=== PATIENT | female | born 1985 | race African-American/Black ===

== ENCOUNTER 2022-06-14 09:35 | Emergency (ER) | payer OTHER ==
[2022-06-14 09:47] VITALS: BP 135/85; PULSE 109; RESP 17; TEMP 98.3; BMI 25.5
[2022-06-14] MEDS ORDERED: IBUPROFEN 600 MG TABLET (FP) PO ONE ×2 (10:40→10:53)
== END 2022-06-14 12:10 | disposition home or self-care (01) ==
LOC: JER 09:35
DX: M79.644 Pain in right finger(s) (principal)
CPT/HCPCS: 73130-TC-RT-FY; 99284-25